=== PATIENT | male | born 1995 | race Caucasian/White ===

== ENCOUNTER 2021-11-15 17:23 | Emergency (ER) | payer SELFPAY ==
[2021-11-15 17:57] VITALS: BP 147/73; PULSE 74; RESP 16; TEMP 36.8; O2SAT 100
--- NOTE | 2021-11-15 18:57 | ED_ITS ---
HPI - Dental/Oral General Chief complaint: Dental/Oral Stated complaint: tooth pain Time Seen by Provider: 11/15/21 18:56 Source: patient Mode of arrival: ambulatory Limitations: no limitations History of Present Illness HPI Narrative: This is a 26-year-old male that presents to the emergency department for dentalgia since yesterday. Reports this tooth was already broken. He just started hurting last night. Denies fever, erythema, or edema MD Complaint: tooth pain Location: Tooth # (16) Review of Systems Review of Systems: CONSTITUTIONAL: Denies fever, ENT: Reports dentalgia All systems reviewed & are unremarkable except as noted in HPI and below PMFSH Past Medical History Medical History (Updated 11/15/21 @ 19:00 by Rachel Pemberton PA-C) No active medical problems Social History Social History (Updated 11/15/21 @ 18:57 by Rachel Pemberton PA-C) Substance use: never Exam Narrative: GENERAL: Well-appearing, well-nourished, and in no acute distress. HEAD: Normocephalic, atraumatic. EYES: EOMI. ENT: Mucous membranes moist. Oropharynx without tonsillar hypertrophy exudate or other lesions. Tooth #16 tender to palpation, without surrounding erythema or fluctuance to suggest abscess. No trismus NECK: Supple. No adenopathy or masses. CHEST: Clear to auscultation. No respiratory distress. No wheezes rales or rhonchi HEART: Regular rate and rhythm. No murmur heard. Normal peripheral pulses. EXTREMITIES: Normal range of motion. No edema. SKIN: Warm, dry, no rash. NEURO: No focal deficits. Alert and oriented x3. PSYCH: Normal mood and affect Course Vital Signs Vital signs: Vital Signs Temperature 98.2 F 11/15/21 17:57 Pulse Rate 74 11/15/21 17:57 Respiratory Rate 16 11/15/21 17:57 Blood Pressure 147/73 H 11/15/21 17:57 Pulse Oximetry 100 11/15/21 17:57 Temperature 98.2 F 11/15/21 17:57 Pulse Rate 74 11/15/21 17:57 Respiratory Rate 16 11/15/21 17:57 Blood Pressure 147/73 H 11/15/21 17:57 Pulse Oximetry 100 11/15/21 17:57 MDM - Dental/Oral MDM Narrative Medical decision making narrative: Patient presents to the ER for dental pain ongoing since yesterday. He is afebrile and nontoxic-appearing. No signs for abscess on exam. Will be started on oral antibiotics and was instructed to follow-up with a dentist. He was given warnings to return to the ER Critical Care Time Critical Care Time Critical Care Time: No Discharge Plan Discharge Clinical Impression: Toothache Patient Disposition: Home, Self-Care Condition: Stable Instructions: Antibiotic Form, Toothache (ED) Additional Instructions: Return to the Emergency Department if you experience fever >101, increasing swelling and redness of your tooth, or any other symptoms that are concerning to you Take antibiotic as prescribed. Tylenol or Ibuprofen as needed for pain. You can apply a dab of clove oil to a Qtip and apply to the tooth to help numb the area Follow up with your dentist Prescriptions: New amoxicillin-pot clavulanate 875-125 mg tablet 1 tablet PO Q12H 7 Days Qty: 14 RF: 0 Follow-up/Referrals: PHYSICIAN,[employer]ELOPER [Primary Care Provider] -
[2021-11-15 19:17] VITALS: BP 133/87; PULSE 60; RESP 14; O2SAT 100
== END 2021-11-15 19:19 | disposition home or self-care (01) ==
LOC: ANHED 19:10
PROVIDERS: Emergency Provider Emergency Medicine
DX: K08.89 Other specified disorders of teeth and supporting structures (principal)
CPT/HCPCS: 99283

== ENCOUNTER 2024-02-08 17:46 | Emergency (ER) | payer OTHER, SELFPAY ==
[2024-02-08 18:01] VITALS: BP 157/81; PULSE 94; RESP 16; TEMP 36.4; O2SAT 100
[2024-02-08 18:09] LABS: EDSTREPNEGPOS1 Presumptive Negative
--- NOTE | 2024-02-08 18:13 | ED.URI ---
HPI - URI/Sore Throat General Chief Complaint: Upper Respiratory Infection Stated Complaint: throat issues Time Seen by Provider: 02/08/24 18:07 Source: patient and RN notes reviewed Mode of arrival: ambulatory Limitations: no limitations History of Present Illness HPI Narrative: Patient presents today complaining of a dry and scratchy throat since this morning. He also reports a swollen uvula. Currently rates pain 1/10 and took some ibuprofen this morning which did provide some relief. 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 Related Data Home Medications Medication Instructions Recorded Confirmed No Home Medications 02/08/24 02/08/24 Allergies Allergy/AdvReac Type Severity Reaction Status Date / Time No Known Allergies Allergy Verified 02/08/24 17:58 Review of Systems Review of Systems: CONSTITUTIONAL: Denies body aches, fever, chills, or sweats. EYES: Denies visual changes, redness, or discharge. ENT: Denies rhinorrhea, congestion, or otalgia.+ sore throat CARDIOVASCULAR: Denies chest pain, palpitations, or edema. RESPIRATORY: Denies cough or dyspnea. GASTROINTESTINAL: Denies abdominal pain, nausea, vomiting, or diarrhea. GENITOURINARY: Denies dysuria or hematuria. SKIN: Denies rash, itching, or wounds. MUSCULOSKELETAL: Denies back pain, joint pain, or myalgia. NEUROLOGIC: Denies headache, numbness, tingling, or weakness. PSYCH: Denies depression or anxiety. [facility] Past Medical History Medical History No active medical problems Social History Social History Substance use: never Comments At time of signature, I have reviewed and agree with nursing past medical, surgical, social and family history unless otherwise noted. Please see nursing chart for further information. There is no relevant family history pertinent to the presenting complaint Exam Narrative: GENERAL: Well-appearing, well-nourished, and in no acute distress. HEAD: Normocephalic, atraumatic. EYES: EOMI. No redness or drainage. Conjunctivae normal. ENT: Mucous membranes pink and moist. Nares clear. No rhinorrhea. TMs normal bilaterally. Throat with mild postnasal drip. Uvula mildly erythematous and edematous. NECK: Normal AROM. Supple. No lymphadenopathy. CHEST: No respiratory distress. Clear to auscultation. HEART: Regular rate and rhythm. No murmur appreciated. EXTREMITIES: Normal range of motion. No edema. SKIN: Warm, dry, no rash. Capillary refill normal. Normal skin turgor. NEURO: No focal deficits. Alert and oriented x3. Gait steady. PSYCH: Normal affect. No signs of depression or anxiety. Course Course Level of Care: Express Care Visit Vital Signs Vital signs: Vital Signs Temperature 97.6 F 02/08/24 18:01 Pulse Rate 94 02/08/24 18:01 Respiratory Rate 16 02/08/24 18:01 Blood Pressure 157/81 H 02/08/24 18:01 Pulse Oximetry 100 02/08/24 18:01 Oxygen Delivery Room Air 02/08/24 18:01 Temperature 97.6 F 02/08/24 18:01 Pulse Rate 94 02/08/24 18:01 Respiratory Rate 16 02/08/24 18:01 Blood Pressure 157/81 H 02/08/24 18:01 Pulse Oximetry 100 02/08/24 18:01 Oxygen Delivery Room Air 02/08/24 18:01 Reviewed MDM - URI/Sore Throat MDM Narrative Medical decision making narrative: Rapid strep negative. Culture pending. Symptoms likely due to environmental irritation when working yesterday. Patient also reports he snores and sleeps with a fan, which may be contributory. NSAID was helpful. Recommend continuing this with PCP follow-up if symptoms persist. Differential Diagnosis Differential diagnosis: Likely upper respiratory infection, otitis media, viral infection, pharyngitis and other (Strep throat) Lab Data Attestation: I reviewed the patient's lab results. Labs: Lab Results 02/08/24 Range/Units 18:07 POC Grp
== END 2024-02-08 18:22 | disposition home or self-care (01) ==
PROVIDERS: Emergency Provider Nurse Practitioner; PCP Internal Medicine
DX: J02.9 Acute pharyngitis, unspecified (principal)
CPT/HCPCS: 87081; 87880; 99213; G0463